=== PATIENT | male | born 1950 | race African-American/Black ===

== ENCOUNTER → 2017-10-31 05:29 | Day surgery (SDC) | payer OTHER | END | disposition home or self-care (01) | LOC: D.OPS 05:29 | DX: Z85.048 Personal history of other malignant neoplasm of rectum, rectosigmoid junction, and anus (principal); Z53.9 Procedure and treatment not carried out, unspecified reason; Z01.812 Encounter for preprocedural laboratory examination ==

== ENCOUNTER 2017-12-12 05:30 | Day surgery (SDC) | payer OTHER ==
[~2017-12-12] VITALS: Ht 165.1 cm; Wt 65.9 kg
--- NOTE | ~2017-12-12 | HP ---
PATIENT: FATMATA MORA MEDICAL RECORD: [id number] ACCOUNT: [id number] [facility] 50 AD[facility]ION DATE: 12/12/17 PCP: TD BARRIOS MD HISTORY AND PHYSICAL EXAMINATION CHIEF COMPLAINT: Here for colonoscopy. HISTORY OF PRESENT ILLNESS: The patient is here for a colonoscopy. He states that he has had a transrectal excision of a rectal cancer in the past. He states he has been having some hematochezia as well. He is here for colonoscopy. He was found to be bradycardic. He will be evaluated by Dr. Paniagua. After the procedure, he has a pacemaker, but it may not be functioning properly. HOME MEDICATIONS: Please see the nursing list. ALLERGIES: No known drug allergies. SOCIAL HISTORY: Nonsmoker. PAST MEDICAL AND SURGICAL HISTORY: History of tuberculosis, hypertension, sinus bradycardia, insulin-dependent diabetes mellitus, rectal cancer. PHYSICAL EXAMINATION: GENERAL: The patient does not appear acutely ill. He does not appear chronically ill. VITAL SIGNS: Reviewed. EARS: External ears appear normal. EYES: Extraocular movements are intact. NECK: Trachea is midline. CHEST: No intercostal retractions. PULMONARY: Nonlabored, no stridor. CARDIOVASCULAR: Bradycardic, regular rhythm. IMPRESSION: 1. Hematochezia. 2. History of rectal cancer. PLAN: Colonoscopy. TRANSINT:[id number] Voice Confirmation ID: [id number] DOCUMENT ID: [id number] TD BARRIOS MD at 1017 CC: LOU NAYAK [id number] DICTATION DATE: 12/12/17 1128 HOSPITAL MEDICAL ASSISTANT: 12/12/17 1225 [facility] [place] 12/12/17 [id number] [place] [address]
--- NOTE | ~2017-12-12 | OP ---
PATIENT NAME: FATMATA MORA MEDICAL RECORD: [id number] :50 LOCATION:D.OPS ADMISSION DATE: SURGEON: TD BARRIOS MD DATE OF OPERATION: 12/12/2017 PREOPERATIVE DIAGNOSIS: History of rectal cancer. POSTOPERATIVE DIAGNOSES: 1. History of rectal cancer with 1 sessile polyp at 1 meter, it was an 8-mm x 7-mm sessile polyp, which appeared adenomatous. 2. Apparent coloanal anastomosis with apparent proctitis, perhaps radiation induced. 3. 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 4. Proctitis. PROCEDURES: 1. Total colonoscopy to cecum. 2. Hot biopsy forceps polypectomy times 1. 3. Cold endoscopic biopsies of the anastomosis as well as the distal rectum. SURGEON: Td Barrios MD WATER SERVICE DISPATCHER: None. BLOOD LOSS: Minimal. ANESTHESIA: IV sedation. COMPLICATIONS: None. The risks, possible complication, alternatives to procedure were explained to the patient. He elects to proceed. The indication for the anesthesia staff being present during the procedure includes bradycardia and possible cardiac instability due to bradycardia. OPERATIVE COURSE: The patient was conveyed to endoscopy suite electively on 12/12/2017. IV sedation was induced by the anesthesia staff. The patient was placed in the Seo position. A digital rectal examination was performed. A colonoscope was inserted through the anus. It was easily advanced to the cecum. The prep was adequate. I slowly withdrew the endoscope. I irrigated and aspirated extensively. I dragged the folds. A combination of normal imaging and narrow band imaging were utilized. A hot biopsy forceps polypectomy was performed. In the rectum, I was unable to retroflex the scope as the rectum would not retain air. Cold endoscopic biopsies of the lower rectum were performed. Proctitis was present. I also performed some biopsies, which were cold endoscopic biopsies of the anastomosis and these were included in the rectal biopsies. The endoscope was then withdrawn under direct vision. I will plan to see the patient on a p.r.n. basis. I would recommend that if the pathology is benign that he undergo his next surveillance colonoscopy in 3 years. TRANSINT:[id number] Voice Confirmation ID: [id number] DOCUMENT ID: [id number] OPERATIVE REPORT [id number] MORAFATMATA TD BARRIOS MD at 1017 CC: ROGER DENTON MD and LOU NAYAK [id number] DICTATION DATE: 12/12/17 1217 [employer] METAL MECHANIC: 12/12/17 1308 [facility] [place] 12/12/17 [address] [address] [place] [address]
[2017-12-12 07:04] LABS: BASOPHILS 0.1 % (0-2); EOSINOPHILS 3.3 % (0-7); HEMATOCRIT 38.5 % (42.0-54.0); IMMATURE GRANULOCYTES 0.1 % (0-5); LYMPHOCYTES 28.6 % (15-50); MCH 30.6 pg (26.0-34.0); MCHC 33.8 g/dL (31.0-37.0); MCV 90.6 fL (80.0-100.0); MEAN PLATELET VOLUME 10.1 fL (7.4-10.4); MONOCYTES 13.2 % (2-11); NEUTROPHILS 54.7 % (40-80); PLATELET COUNT 224 10x3/uL (130-400); RBC 4.25 10x6/uL (4.20-6.10); RDW 13.1 % (11.5-14.5); WBC 7.1 10x3/uL (4.8-10.8)
[2017-12-12 07:15] LABS: CALC OSMOLALITY 276 mosm/kg (275-300); CALCIUM 9.2 mg/dL (8.5-10.1); CHLORIDE - SERUM 107 mmol/L (98-107); CREATININE - SERUM 0.7 mg/dL (0.6-1.3); GLUCOSE 89 mg/dL (74-106); POTASSIUM - SERUM 4.6 mmol/L (3.5-5.1); SODIUM 140 mmol/L (136-145); UREA NITROGEN 10 mg/dL (7-18); eGFR NON AFRICAN AMERICAN > 90 mL/min (90-120)
[2017-12-12 07:16] LABS: APTT 27.4 SECONDS (22.8-39.4); INR 1.03 (0.85-1.17); PROTIME 13.1 SECONDS (11.6-15.0)
[2017-12-12] MEDS ORDERED: ARTIFICIAL TEAR15 ML EACH EYE (08:10)
[2017-12-12] MEDS ORDERED: NORVASC5 MG PO (08:10)
[2017-12-12] MEDS ORDERED: BAYER CHEWABLE81 MG PO (08:11)
[2017-12-12] MEDS ORDERED: TEGRETOL200 MG PO (08:11)
[2017-12-12] MEDS ORDERED: COREG12.5 MG PO (08:12)
[2017-12-12] MEDS ORDERED: PLAVIX75 MG PO (08:12)
[2017-12-12] MEDS ORDERED: NEURONTIN 300300 MG PO (08:13)
[2017-12-12] MEDS ORDERED: HUMULIN 70100 UNIT/1 SC (08:14)
[2017-12-12] MEDS ORDERED: HUMULIN R100 U/ML SC (08:14)
[2017-12-12] MEDS ORDERED: CHRONULAC30 ML PO (08:15)
[2017-12-12] MEDS ORDERED: XALATAN 0.0052.5 ML EACH EYE (08:16)
[2017-12-12] MEDS ORDERED: ZOCOR20 MG PO (08:16)
[2017-12-12] MEDS ORDERED: ZESTRIL20 MG PO (08:16)
[2017-12-12] MEDS ORDERED: XOPENEX HFA15 GM INH (08:17)
[2017-12-12 08:26] VITALS: BP 151/110; Ht 165.1 cm; Wt 65.9 kg
== END 2017-12-12 14:05 | disposition home or self-care (01) ==
LOC: D.OPS 05:30
PROVIDERS: Anesthesiology
DX: K63.5 Polyp of colon (principal); K62.89 Other specified diseases of anus and rectum; Z85.048 Personal history of other malignant neoplasm of rectum, rectosigmoid junction, and anus; R00.1 Bradycardia, unspecified; Z95.0 Presence of cardiac pacemaker; I10 Essential (primary) hypertension; E11.9 Type 2 diabetes mellitus without complications; Z86.11 Personal history of tuberculosis; Z79.4 Long term (current) use of insulin; Z01.812 Encounter for preprocedural laboratory examination